=== PATIENT | female | born 1990 | race Asian ===

== ENCOUNTER 2024-06-12 06:52 | Inpatient (IN) ==
[2024-06-12] MEDS: Lactated Ringers 1000 ml BAG 1,000 ML IV ONE (08:00)
[2024-06-12] MEDS ORDERED: Lidocaine 1% VIAL 10 MG/ML 30 ML VIAL INJ PRN (08:17)
[2024-06-12 08:24] LABS: Hematocrit 39.1 % (35-45); Hemoglobin 13.4 g/dL (11.5-14.3); Mean Corpuscular Hemoglobin 33.1 pg (27-33); Mean Corpuscular Hgb Conc 34.3 g/dL (31-36); Mean Corpuscular Volume 96.5 fL (80-97); Mean Platelet Volume 10.2 fL (7.5-11.2); Platelet Count 181 10^3/uL (150-450); Red Blood Count 4.05 10^6/uL (3.63-4.92); Red Cell Distribution Width 13.6 % (12-17)
[2024-06-12 08:58] LABS: Urine Benzodiazepine Screen None Detected (None Detect); Urine Buprenorphine Screen None Detected (None Detect); Urine Cannabinoids Screen None Detected (None Detect); Urine Fentanyl Screen None Detected (None Detect); Urine Hydrocodone Screen None Detected (None Detect); Urine Opiates Screen None Detected (None Detect)
[2024-06-12 09:01] LABS: Potassium 4.4 mmol/L (3.5-5.0)
[2024-06-12 09:02] LABS: Albumin 3.4 g/dL (3.2-5.2); Albumin/Globulin Ratio 1.2 (1-3); Calcium 9.2 mg/dL (8.6-10.3); Creatinine, Serum 0.62 mg/dL (0.51-0.95); Globulin 2.9 g/dL (2-4); Total Bilirubin 0.4 mg/dL (0.2-1.0); Total Protein 6.3 g/dL (6.4-8.9); eGFR CKD-EPI 120.5 (>60)
[2024-06-12] MEDS: Buffered Lidocaine 1% SYRIN 1 ml INTRADERM ONE (09:13)
[2024-06-12] MEDS: Lidocaine/Epinephrin 1.5%/200 5 ML AMP INJ ONE (09:14)
[2024-06-12] MEDS: OBEPIDURAL (200 ML) 200 ML EPIDURAL ONE (09:14)
[2024-06-12] MEDS: Lactated Ringers 1000 ml BAG 1,000 ML IV SCH (09:14)
[2024-06-12] MEDS ORDERED: Lactated Ringers 1000 ml BAG 1,000 ML IV ONE (09:49)
[2024-06-12] MEDS ORDERED: Phenylephrine 40 mcg/mL 10mL (400mcg) SYRINGE IV PUSH PRN ×2 (09:49)
[2024-06-12] MEDS ORDERED: Sodium Citrate/Citric Acid LIQ 15 ML UDC PO PRN (09:49)
[2024-06-12] MEDS ORDERED: Lactated Ringers 1000 ml BAG 1,000 ML IV SCH ×2 (10:00→23:45)
[2024-06-12] MEDS: OBEPIDURAL (200 ML) 200 ML EPIDURAL SCH (10:34)
[2024-06-12 11:18] LABS: Urine Appearance Clear; Urine Bilirubin Negative (Negative); Urine Blood Negative (Negative); Urine Color Light-Yellow; Urine Glucose Negative (Negative); Urine Ketones Negative (Negative); Urine Nitrite Negative (Negative); Urine Protein Negative (Negative); Urine Specific Gravity 1.012 (1.002-1.030); Urine Urobilinogen Negative (Negative); Urine pH 6.5 (5.0-8.0)
[2024-06-12] MEDS: Ondansetron 4 mg VIAL 2 MG/ML 2 ml VIAL IV PRN (19:07)
[2024-06-12] MEDS: Oxytocin in LR 20,000 MILLI.UNIT/1,000 ML BAG IV SCH (20:35)
[2024-06-12] MEDS ORDERED: Glycerin ADULT 2.4 gm SUPP PR PRN (23:19)
[2024-06-12] MEDS ORDERED: ceFAZolin VIAL 2 GM in NS 0.9% 100 ml BAG 100 ML IVPB ONE (23:21)
[2024-06-12] MEDS: Phenylephrine 40 mcg/mL 10mL (400mcg) SYRINGE ONE (23:38)
[2024-06-12] MEDS: ceFAZolin 2 GM/50 ML BAG IV ONE (23:44)
[2024-06-12] MEDS: Witch Hazel PAD JAR TOPICAL PRN (23:46)
[2024-06-13] MEDS: Oxytocin in LR 20,000 MILLI.UNIT/1,000 ML BAG IV SCH
[2024-06-13 08:30] LABS: ABS Eosinophils 0.1 10^3/uL (0.0-0.5); ABS Lymphocytes 1.4 10^3/uL (1.0-4.8); ABS Monocytes 0.7 10^3/uL (0.0-0.9); ABS Neutrophils 9.2 10^3/uL (1.5-7.6); Eosinophil % 0.9 %; Hematocrit 29.8 % (35-45); Hemoglobin 10.3 g/dL (11.5-14.3); Lymphocyte % 12.4 %; Mean Corpuscular Hemoglobin 33.5 pg (27-33); Mean Corpuscular Hgb Conc 34.6 g/dL (31-36); Mean Corpuscular Volume 96.6 fL (80-97); Mean Platelet Volume 9.9 fL (7.5-11.2); Platelet Count 137 10^3/uL (150-450); Red Blood Count 3.09 10^6/uL (3.63-4.92); Red Cell Distribution Width 13.4 % (12-17); White Blood Count 11.5 10^3/uL (3.8-11.8)
[2024-06-13] MEDS: ATOMOXETINE 18 MG PO SCH (08:48)
[2024-06-14 09:50] VITALS: BP 118/76
[2024-06-14] MEDS: Dibucaine 1% OINT 28.35 GM TUBE PR PRN (18:17)
== END 2024-06-14 18:30 | disposition home or self-care (01) | DRG 541 ==
LOC: MCHOBOUT 06:52 → MCHOB 07:32
PROVIDERS: ADMIT Obstetrics & Gynecology; ATTEND Obstetrics & Gynecology